=== PATIENT | male | born 1980 | race Caucasian/White ===

== ENCOUNTER 2020-02-27 16:35 | Outpatient (REF) | payer SELFPAY | END 2020-02-27 16:36 | disposition home or self-care (01) | LOC: HO.LAB 16:35 | PROVIDERS: Visit Provider Internal Medicine | DX: Z20.828 Contact with and (suspected) exposure to other viral communicable diseases (principal) | CPT/HCPCS: C9803; U0003 ==

== ENCOUNTER 2020-03-02 16:13 | Outpatient (REF) | payer SELFPAY | END 2020-03-02 16:14 | disposition home or self-care (01) | LOC: HO.LAB 16:13 | PROVIDERS: Visit Provider Internal Medicine | DX: Z20.828 Contact with and (suspected) exposure to other viral communicable diseases (principal) | CPT/HCPCS: C9803; U0003 ==

== ENCOUNTER 2020-08-20 16:11 | Emergency (ER) | payer MEDICAID, SELFPAY ==
[2020-08-20 16:18] VITALS: BP 137/70; PULSE 66; TEMP 35.8; BMI 26.6
--- NOTE | 2020-08-20 16:44 | ED_ITS ---
HPI - Wound/Laceration General Chief Complaint: Wound/Laceration <TC Kauffman - Last Filed: 09/03/20 16:09> Stated Complaint: lac <TC Kauffman - Last Filed: 09/03/20 16:09> Time Seen by Provider: 08/20/20 16:44 <TC Kauffman - Last Filed: 09/03/20 16:09> History of Present Illness HPI narrative: Patient complains of right hand laceration which he got 48 hours ago and thought it would heal quickly but it still is bleeding a little bit so he comes to the ER, no pain no fever no swelling no numbness or tingling <TC Kauffman - Last Filed: 09/03/20 16:09> Related Data Allergies/Adverse Reactions: Allergies Allergy/AdvReac Type Severity Reaction Status Date / Time morphine [MORPHINE] Allergy Severe HIVES Verified 08/20/20 17:03 <TC Kauffman - Last Filed: 09/03/20 16:09> Review of Systems Review of Systems: Positive for right hand laceration Negatives are no numbness no weakness no tingling no joint pain no fever no chills no discharge from <TC Kauffman - Last Filed: 09/03/20 16:09> Yes all other systems are reviewed and are negative <TC Kauffman - Last Filed: 09/03/20 16:09> [facility] Past Medical History Source: nursing notes reviewed <TC Kauffman - Last Filed: 09/03/20 16:09> Physical Exam Vital Signs: Vital Signs: Last Vital Signs Temp 96.5 F L 08/20/20 16:18 Pulse 66 08/20/20 16:18 BP 137/70 08/20/20 16:18 Body Mass Index 26.6 <TC Kauffman - Last Filed: 09/03/20 16:09> Vital Signs: Last Vital Signs Temp 96.5 F L 08/20/20 16:18 Pulse 66 08/20/20 16:18 BP 137/70 08/20/20 16:18 Body Mass Index 26.6 <Benson Willard MD - Last Filed: 10/06/20 09:37> General appearance no acute distress Head is normocephalic atraumatic Neck is supple The right hand had a 1.5 cm open laceration with granulation tissue, no surrounding erythema no discharge from wound no tenderness no fluctuance, all tendon function both on extension and flexion is normal and neurovascular intact distal Other extremities normal <TC Kauffman Last Filed: 09/03/20 16:09> Course Course Course Narrative: 2-day-old laceration is cleansed and irrigated and loosely taped together with Steri-Strips, no suturing as it is already 48 hours old and no signs of infection <TC Kauffman - Last Filed: 09/03/20 16:09> I have reviewed the chart <Benson Willard MD - Last Filed: 10/06/20 09:37> Discharge Plan Discharge Clinical Impression: Laceration <TC Kauffman Last Filed: 09/03/20 16:09> Patient Disposition: Home, Self-Care <TC Kauffman Last Filed: 09/03/20 16:09> Additional Instructions: Because the wound is 48 hours old there is a risk of infection if we put stitches so we taped it loosely together You can remove the tape in 5 or 6 days If it comes off when you wash there is no need to replace the tape It is okay to get the tape wet but then let it dry out and then cover with a dry Band-Aid after you shower wash Cuts that heal on their own will probably take another week or so to close up so wear a Band-Aid and a glove if your working with tools Get a tetanus shot Return any time for redness swelling pain fever any sign of infection any concerns <TC Kauffman - Last Filed: 09/03/20 16:09> Interventions: ED Discharge Assessment Last Done: 08/20/20 17:34 <TC Kauffman Last Filed: 09/03/20 16:09> Discharge Date/Time: 08/20/20 17:36 <TC Kauffman - Last Filed: 09/03/20 16:09>
[2020-08-20] MEDS: Diphth,Pertus(ACell),Tet Adult 0.5 ML SYRINGE IM (17:16)
--- NOTE | 2020-08-20 17:16 | PC.NURSE ---
EDERI STRIPPED PATIENTS 2 DAY OLD LACERATION. APPLIED NON STICK GAUZE AND KERLEX. PATIENT EDUCATED ON DRESSING CHANGES.
== END 2020-08-20 17:36 | disposition home or self-care (01) ==
PROVIDERS: Emergency Provider Emergency Medicine
DX: S61.411A Laceration without foreign body of right hand, initial encounter (principal); M79.641 Pain in right hand; X58.XXXA Exposure to other specified factors, initial encounter; Y93.9 Activity, unspecified; Y92.9 Unspecified place or not applicable; Y99.9 Unspecified external cause status
CPT/HCPCS: 90471; 90715; 99284

== ENCOUNTER 2022-07-01 10:37 | Emergency (ER) | payer OTHER, MEDICAID, SELFPAY ==
[2022-07-01 10:55] VITALS: BP 118/79; PULSE 68; RESP 14; TEMP 36.7; O2SAT 100; BMI 25.8
--- NOTE | 2022-07-01 11:11 | ED_ITS ---
HPI - Extremity Problem General Chief complaint: Extremity Injury, Upper Stated complaint: L Hand Finger Injury 06/30/22 Work Related Time Seen by Provider: 07/01/22 10:51 Source: patient Mode of arrival: ambulatory Limitations: no limitations History of Present Illness HPI Narrative: 41yo male presenting following a left hand injury at work yesterday. Patient stated he slammed a gate on his hand and went to [facility] for evaluation where he had x-rays and was diagnosed with a fracture in his left index finger. Patient stated that he was referred to ortho in [place] but wanted to be seen in [place] so he is presenting today for a new referral. MD Complaint: joint pain (left 2nd and 3rd MCP joints) Onset (ago): day(s) (1) Pain Consistency: constant Location: left and other (index and middle fingers) Severity scale (1-10): 6 Quality: aching Radiation: none Relieving factors: medication Exacerbating factors: range of motion and palpation Associated symptoms: denies other symptoms Related Data Previous Rx's Medication Instructions Recorded ibuprofen 600 mg tablet 600 mg PO Q8H PRN pain #20 tabs 07/01/22 Allergies Allergy/AdvReac Type Severity Reaction Status Date / Time morphine [MORPHINE] Allergy Severe HIVES Verified 08/20/20 17:03 Review of Systems Review of Systems: Yes all other systems are reviewed and are negative [facility] Social History Social History Advance Directives: No Physical Exam Vital Signs: Vital Signs: Last Vital Signs Temp 98.1 F 07/01/22 10:55 Pulse 68 07/01/22 10:55 Resp 14 07/01/22 10:55 BP 118/79 07/01/22 10:55 Pulse Ox 100 07/01/22 10:55 O2 Del Method Room Air 07/01/22 10:55 BMI result Body Mass Index 25.8 Appearance: Alert. Oriented X3. No acute distress. HEENT: normal inspection CVS: Normal heart rate and rhythm. Pulses normal. Respiratory: No respiratory distress. Skin: Skin warm and dry. Normal skin color. Normal skin turgor. No rashes. Extremities: left index finger splinted and swathi taped to middle finger on presentation. swelling of left index and middle fingers with minor abrasions distal to the MCP joint and tenderness over the left index MCP joint. Neuro: Oriented X 3. No motor deficit. No sensory deficit. Medications Administered Discontinued Medications Generic Name Dose Route Start Last Admin Trade Name Julianna PRN Reason Stop Dose Admin Ibuprofen 600 mg 07/01/22 12:18 07/01/22 12:25 Ibuprofen 600 Mg Tablet PO 07/01/22 12:19 600 mg ONCE ONE Administration Medical Decision Making Medical Decision Making MDM Narrative: 41yo male presenting for referral to ortho after being diagnosed with a left index finger fracture yesterday at [facility]. Patient's physical exam showed swelling of the left index and middle fingers with minor abrasions distal to the MCP joint and tenderness over the left index MCP joint. Patient's x-ray from [facility] yesterday showed complex fracture of the 2nd proximal phalanx, transverse distal diaphyseal component with pronounced dorsal angulation of the distal fragment, and longitudinal component extending to the articular surface at the MCP joint. Patient was given 600mg ibuprofen for pain. [He/She] was instructed to continue the medications he was prescribed at [facility] as directed. He was instructed to follow up with ortho and his primary care doctor and to call 911 or return if he develops new or worsening symptoms. Differential Diagnosis Differential Diagnoses: The differential diagnosis associated with the presentation includes finger fracture, finger sprain, finger abrasion Radiology Impression Discussion of test interpretation with radiology: I have reviewed the radiologist's reading. (from [facility] yesterday) Radiologist Impression: Complex fracture of the 2nd proximal phalanx. Transverse distal diaphyseal component with pronounced dorsal angulation of the distal fragment. Longitudinal component extending to the articular surface at the MCP joint. Soft tissue swelling of the 2nd digit. External Record Review External record reviewed: Outside ED record (from [facility] ED from yesterday) Tests considered The following testing was considered but not selected: X-ray not needed because records were obtained from [facility] Prescription Management I considered prescription management with: Pain Medication (ibuprofen) Critical Care Time Critical Care Time Critical Care Time: No Discharge Plan Discharge Clinical Impression: Broken finger Patient Disposition: Home, Self-Care Instructions: Finger Fracture (ED) Additional Instructions: Keep your finger in the applied splint until seen by Orthopedics. At ice and elevate your finger to help with pain and swelling. Take the prescribed anti-inflammatory pain medication as needed. Follow-up with orthopedics. If you develop new or worsening symptoms call 911 or come back to the ER for further evaluation. Prescriptions: New ibuprofen 600 mg tablet 600 mg PO Q8H PRN (Reason: pain) Qty: 20 0RF Referrals: [facility] [Provider Group] (X-ray 06/30 complex fracture of the 2nd proximal phalanx. Transverse distal diaphyseal component with pronounced dorsal angulation of the distal fragment. A longitudinal component extending through the articular surface at the MCP joint. ) Interventions: ED Discharge Assessment Last Done: 07/01/22 12:46 Discharge Date/Time: 07/01/22 12:46
[2022-07-01] MEDS: Ibuprofen 600 MG TABLET PO (12:25)
--- NOTE | 2022-07-01 12:41 | PC.NURSE ---
pt medicated per PAULA IBU 600mg 09/22 left index finger, finger splint reapplied, well tolerated by pt
== END 2022-07-01 12:46 | disposition home or self-care (01) ==
PROVIDERS: Emergency Provider Emergency Medicine
DX: S62.611D Displaced fracture of proximal phalanx of left index finger, subsequent encounter for fracture with routine healing (principal); W23.1XXD Caught, crushed, jammed, or pinched between stationary objects, subsequent encounter; Y93.89 Activity, other specified; Y92.9 Unspecified place or not applicable; Y99.0 Civilian activity done for income or pay
CPT/HCPCS: 99283

== ENCOUNTER 2022-07-07 13:35 | Outpatient (REF) | payer OTHER, MEDICAID, SELFPAY ==
--- NOTE | ~2022-07-07 | XR_ITS ---
EXAMINATION: XR HAND, LEFT CLINICAL INFORMATION: Pain. COMPARISON: Radiographs dated 07/25/2011. TECHNIQUE: PA, lateral, and oblique views of the left hand. FINDINGS: Bony mineralization is normal. A comminuted, angulated stellate fracture is noted of the distal shaft of the left second proximal phalanx. The fracture line extends to the lateral articular surface of the base of the second phalanx. There is a 59 degrees of apex volar angulation. No dislocation is seen. There is generalized soft tissue swelling. No soft tissue gas or foreign body is seen. XR/XR hand LT min 3V IMPRESSION: A comminuted, angulated, stellate fracture is noted of the distal left second proximal phalangeal shaft. The fracture line appears to extend proximally to the base of the second proximal phalanx. There is adjacent soft tissue swelling.
== END 2022-07-07 13:36 | disposition home or self-care (01) ==
LOC: HO.HOSX 13:35
PROVIDERS: Visit Provider Orthopaedic Surgery
DX: M79.642 Pain in left hand (principal)
CPT/HCPCS: 73130

== ENCOUNTER 2022-07-08 | Outpatient (REF) | payer OTHER, SELFPAY ==
--- NOTE | ~2022-07-08 | XR_ITS ---
EXAMINATION: XR HAND, LEFT CLINICAL INFORMATION: Follow-up second proximal phalanx comminuted fracture. COMPARISON: None available. TECHNIQUE: PA, lateral, and oblique views of the left hand. FINDINGS: Bony mineralization is normal. There is stable alignment of a comminuted fracture of the second proximal phalanx following K wire removals. There is near-anatomic alignment, with diminished fracture lines noted, suggesting interval callus formation. No dislocation is seen. There is mild soft tissue swelling of the proximal left second finger. No soft tissue gas or foreign body is seen. XR/XR hand LT min 3V IMPRESSION: There is stable near-anatomic alignment of a comminuted fracture of the second proximal phalanx status-post removal of K wires. There are diminished fracture lines, suggesting mild interval callus deposition.
== END 2022-07-08 00:01 | disposition home or self-care (01) ==
LOC: HO.HOSX
PROVIDERS: Visit Provider Orthopaedic Surgery
DX: M79.642 Pain in left hand (principal)
CPT/HCPCS: 73130

== ENCOUNTER → 2022-07-08 11:07 | Outpatient (BNVA) | payer OTHER, MEDICAID, SELFPAY | PROVIDERS: Visit Provider Orthopaedic Surgery | DX: S62.611B Displaced fracture of proximal phalanx of left index finger, initial encounter for open fracture (principal) | CPT/HCPCS: 73130; 99202 ==

== ENCOUNTER 2022-07-10 08:54 | Day surgery (SDC) | payer OTHER, SELFPAY ==
--- NOTE | ~2022-07-10 | FL_ITS ---
EXAMINATION: XR FLUOROSCOPY WITH IMAGES CLINICAL INFORMATION: Fracture COMPARISON: Previous x-ray 07/08/2022 TECHNIQUE: Fluoroscopy Supervised By: Dr. Vickie Holt. Fluoroscopy Time: 51 seconds. Cumulative Dose: 1.4 mGy. DAP: 0.08 Gycm2. Images: 8. FINDINGS: Images demonstrate 3 K wires are patent or pins transfixing the comminuted fracture of the proximal phalanx of the left second finger. There is improved alignment. FL/FL guidance in OR IMPRESSION: Fluoroscopic guidance for ORIF of proximal phalanx fracture of the left second finger.
[2022-07-10 09:03] VITALS: BMI 25.0
[2022-07-10 09:10] VITALS: BP 115/72; PULSE 57; RESP 15; TEMP 36.6; O2SAT 99
[2022-07-10] MEDS: Lactated Ringers 1,000 ML 50 ML IVCONT (09:27)
--- NOTE | 2022-07-10 09:53 | MHC.SHP ---
Pre-Procedural Eval Section A Date of Service: 07/10/22 The patient is an INPATIENT: No Changes since office visit: No Cold of Flu in the past 2 weeks, No New Medical Problems, No Changes in Medication and No Patient answered all questions The History & Physical has been completed within 30 days and I have reviewed it.: Yes Section B Chief Complaint: Displaced fracture of proximal phalanx of left Allergies: Allergies Allergy/AdvReac Type Severity Reaction Status Date / Time morphine [MORPHINE] Allergy Severe HIVES Verified 07/08/22 11:19 Plan I have reviewed the history and physical and performed a pertinent physical examination on my patient. No changes have occurred unless specified. Time Spent With Patient Time: Total time managing care of this patient today ____ minutes.
--- NOTE | 2022-07-10 09:54 | W.PM.OPN ---
Operative Note Operative Note Date of Service: 07/10/22 Narrative: Operative Note Narrative: Preop diagnosis: 1. Left open index finger proximal phalanx fracture with comminution Postop diagnosis: Same Procedure: 1. Left index finger proximal phalanx fracture open reduction internal fixation 2. I and D of open left index finger proximal phalanx fracture Surgeon: Vickie Holt MD Anesthesia: General Anesthesia Findings: Comminuted proximal phalanx fracture. Significant hematoma extending between extensor tendon and lateral band dorsally, to dorsal skin wound. Volarly there was a 2 mm skin wound. Deep to the incision I did not see significant hematoma in this area so I think it is less likely that the bone protruded through the skin volarly than dorsally. No purulence ir evidence of gross infection. Implants: 0.045 K-wires times 1, 0.035 K-wires x2 Tourniquet time: 55 min EBL: Minimal Specimen: None Drains: None Complications: None Disposition: Brought to the recovery room in stable condition Plan: Follow-up in 5-7 days for a wound check and for placement back in a volar splint. Follow-up a week later for suture removal, pre clinic radiographs and for placement in a short-arm finger spica cast. Anticipate K-wire removal in 4-5 weeks based on interval bony healing Educate the patient that full fracture healing anticipated in approximately 8-12 weeks. Indications: The patient is 42 years old with an open left index finger proximal phalanx fracture with comminution . The risks and benefits of operative treatment, including but not limited to risk of damage to blood vessels, nerves, tendons, infection, recurrence, delayed or nonunion of fracture, persistent pain or numbness, incomplete resolution of preoperative symptoms, or need for further surgery were discussed with the patient and they wished to proceed with surgery. Procedure: Once consent was obtained patient was brought back to the operating suite and placed in the operating table in a supine position. A regional block was performed by the anesthesia team. Perioperative antibiotics and general anesthesia was administered by the anesthesia team. A tourniquet was applied to the proximal aspect of the left upper extremity and the limb was prepped and draped in a standard surgical fashion. The limb was elevated exsanguinated with an Esmarch bandage and the tourniquet inflated for a total tourniquet time of 55 min. The FluoroScan was used during the case to assist with our fracture reduction and placement of all implants. A closed reduction was performed on the patient's left index finger proximal phalanx fracture. I then made a dorsal longitudinal incision through the skin to the subcutaneous tissues using a 15. Blade. I dissected down to the extensor mechanism. Between the extensor tendon and the ulnar lateral band I could see that hematoma from the fracture passed through this area to the overlying skin wound, likely creating the open fracture. The fracture was debrided of hematoma using a rongeur and a small curette and the fracture site was copiously irrigated with normal saline. I also made a 1.5 cm incision over the volar aspect of the proximal phalanx centered over a 2 mm wound that looked like it could have been where a spike of bone protruded through the skin. I then dissected through the skin to the subcutaneous tissues. I did not see any hematoma in this area, and I think it is less likely that the bone protruded through the skin in this area. This also was copiously irrigated with normal saline. An open reduction was then performed on this fracture bringing it from her 90 degrees of apex volar angulation into its roughly anatomic position. I then passed a 0.045 K-wire through the radial base of the index finger proximal phalanx. This was advanced distally across the fracture sites and into the distal ulnar fragment. I then passed a 0.035 K-wire through the distal radial aspect of the proximal phalanx. This was then advanced retrograde across the transverse fracture site and into the ulnar shaft of the proximal phalanx. I then passed a 2nd 0.035 K-wire through the ulnar distal aspect of the proximal phalanx. This was advanced retrograde across the fracture site and down the shaft of the proximal phalanx to the base of the proximal phalanx. I was satisfied with our fracture reduction and with our construct. He did not appear to have any malrotation on clinical exam. At this point all K-wires bent, cut short and pin caps applied. Final radiographs were then obtained. The open fracture was again copiously irrigated with normal saline, also using an Angiocath and a syringe to appropriately irrigate the fracture. The wounds were copiously irrigated with normal saline. A digital block was also performed using some 0.5% plain ropivacaine for postop pain control. A Sterile dressing and volar splint extending from the fingertips to the forearm was applied. The patient appears to have tolerated the procedure well and with no complications. All digits were well vascularized at the conclusion of the case.
--- NOTE | 2022-07-10 11:56 | P.CONAN_ITS ---
[facility] Active Problems Active Problems: All Active Problems (Updated 07/10/22 @ 09:03 by Barbie Decker RN) Open fracture of proximal phalanx of left index finger (Acute) Past Medical History Medical History (Updated 07/10/22 @ 09:03 by Barbie Decker RN) No pertinent past medical history Family History Family history of problems with anesthesia: No Surgical History Surgical History (Updated 07/10/22 @ 09:02 by Barbie Decker RN) Hx of tonsillectomy History of Problems with Anesthesia: No Social History Social History (Updated 07/08/22 @ 11:33 by TEVIN Adams) Patient Tobacco Use Status: Current everyday Tobacco user Tobacco use type: Cigarette Cigarettes Per Day: 5 Use of substances other than those prescribed or required for medical reasons: Yes Substance Use Frequency: Daily Are you DNR?: No Advance Directives: No Advance Directives Information Provided: Yes 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 Meds Allergies Allergy/AdvReac Type Severity Reaction Status Date / Time morphine [MORPHINE] Allergy Severe HIVES Verified 07/08/22 11:19 Active Medications: Current Medications Lactated Ringer's (Lr) 1,000 mls @ 50 mls/hr IVCONT .Q20H KEREN Last Admin: 07/10/22 09:27 Dose: 50 mls/hr Exam Exam Date and Time: July 10, 2022 1156 Height,Weight and Vital Signs: Height 5 ft 6 in Weight 70.307 kg Last Vital Signs Temp 97.9 F 07/10/22 09:10 Pulse 57 07/10/22 09:10 Resp 15 07/10/22 09:10 BP 115/72 07/10/22 09:10 Pulse Ox 99 07/10/22 09:10 O2 Del Method Room Air 07/10/22 09:10 Airway Mallampati Class: II TM Dist: >3cm Heart: cta Lungs: rrr Assessment and Plan Assessment Anesthesia Assessment: Anesthesia Plan Discussed and Chart Reviewed Final Anesthetic Review Family History of Problems with Anesthesia: No History of Problems with Anesthesia: No NPO: Yes ASA Class: III (pt intoxicated with marihuana per his report.) Final Preanesthetic Review: No Changes in Pt Med Stat, Meds/Allgs Chart Reviewed, Consent Obtained/Reviewed and Anes Risks/Benef Reviewed Patient Risk: Intermediate Procedure Risk: Low Anesthetic Plan Anesthetic Plan: GA and Regional Block Disposition: Standard PACU
[2022-07-10 15:00] VITALS: BP 139/79; PULSE 50; RESP 12; TEMP 36.7; O2SAT 100
[2022-07-10 15:05] VITALS: BP 131/75; PULSE 52; RESP 16; O2SAT 97
[2022-07-10 15:10] VITALS: BP 124/72; PULSE 58; RESP 16; O2SAT 96
[2022-07-10 15:15] VITALS: BP 120/72; PULSE 53; RESP 16; O2SAT 96
[2022-07-10 15:26] VITALS: BP 129/72; PULSE 46; RESP 18; TEMP 36.2; O2SAT 97
== END 2022-07-10 15:44 | disposition home or self-care (01) ==
PROVIDERS: Visit Provider Orthopaedic Surgery
PROC: (CPT 26735; principal; 2022-07-10 10:40)
PROC: (CPT 26735; 2022-07-10 10:40)
DX: S62.611B Displaced fracture of proximal phalanx of left index finger, initial encounter for open fracture (principal); R20.0 Anesthesia of skin; R20.2 Paresthesia of skin; W22.8XXA Striking against or struck by other objects, initial encounter; Y93.89 Activity, other specified; Y92.89 Other specified places as the place of occurrence of the external cause; Y99.0 Civilian activity done for income or pay; Z88.8 Allergy status to other drugs, medicaments and biological substances; F17.210 Nicotine dependence, cigarettes, uncomplicated
CPT/HCPCS: 26735; 10140; J0690; J1100; J2370; J2405; J2795

== ENCOUNTER → 2022-07-16 14:02 | Outpatient (BNVA) | payer OTHER, SELFPAY | PROVIDERS: Visit Provider Physician Assistant | DX: Z13.89 Encounter for screening for other disorder (principal) ==

== ENCOUNTER 2022-07-23 13:40 | Outpatient (REF) | payer OTHER, SELFPAY ==
--- NOTE | ~2022-07-23 | XR_ITS ---
EXAMINATION: XR HAND, LEFT CLINICAL INFORMATION: Pain. COMPARISON: Intraoperative fluoroscopy dated 07/10/2022; radiographs dated 07/08/2022 TECHNIQUE: PA, lateral, and oblique views of the left hand. FINDINGS: 3 K wires are noted transfixing a comminuted fracture of the shaft of the left second middle phalanx. Bony alignment remains stable, with mild distraction of fracture fragments. No hardware failure is seen. There is generalized soft tissue swelling. No foreign body is noted. XR/XR hand LT min 3V IMPRESSION: There is stable bony alignment status-post ORIF of a comminuted fracture of the left second middle phalanx. No hardware failure or loosening is seen. There is no significant new callus formation.
--- NOTE | ~2022-07-23 | XR_ITS ---
EXAMINATION: XR HAND, LEFT CLINICAL INFORMATION: Pain. COMPARISON: Radiographs dated 07/23/2022 and 07/08/2022; intraoperative fluoroscopy dated 07/10/2022. TECHNIQUE: PA, lateral, and oblique views of the left hand. FINDINGS: 3 K wires are again identified transfixing a comminuted fracture fragments of the proximal phalanx of the left third finger. Again, there is mild distraction of fracture fragments. No hardware failure or loosening is seen. The K wires remain in relatively stable positions. There is soft tissue swelling of the proximal left index finger, soft tissue gas or foreign body noted. XR/XR hand LT min 3V IMPRESSION: There is a stable alignment of mildly distracted fracture fragment of the left second proximal phalanx status-post ORIF. No hardware failure or loosening is seen.
== END 2022-07-23 13:41 | disposition home or self-care (01) ==
LOC: HO.HOSX 13:40
PROVIDERS: Visit Provider Orthopaedic Surgery
DX: S62.611D Displaced fracture of proximal phalanx of left index finger, subsequent encounter for fracture with routine healing (principal); X58.XXXD Exposure to other specified factors, subsequent encounter
CPT/HCPCS: 73130

== ENCOUNTER → 2022-07-28 13:10 | Outpatient (BNVA) | payer OTHER, SELFPAY | PROVIDERS: Visit Provider Physician Assistant | DX: S62.611B Displaced fracture of proximal phalanx of left index finger, initial encounter for open fracture (principal); X58.XXXA Exposure to other specified factors, initial encounter; Y93.9 Activity, unspecified; Y92.9 Unspecified place or not applicable; Y99.8 Other external cause status | CPT/HCPCS: 29085 ==

== ENCOUNTER 2022-08-06 09:18 | Outpatient (REF) | payer OTHER, SELFPAY ==
--- NOTE | ~2022-08-06 | XR_ITS ---
EXAMINATION: XR HAND, LEFT CLINICAL INFORMATION: Pain. Fracture. COMPARISON: Previous x-ray most recent 07/23/2022 TECHNIQUE: PA, lateral, and oblique views of the left hand. FINDINGS: Comminuted minimally displaced fracture of the proximal phalanx of the second finger and orthopedic hardware with K wires or pins appear unchanged. Fracture line still seen. No appreciable bony callus formation. Unchanged in alignment. Overlying soft tissue swelling. XR/XR hand LT min 3V IMPRESSION: No change in alignment of the comminuted minimally displaced fracture of the proximal phalanx of the second finger. No appreciable bony callus formation.
== END 2022-08-06 09:19 | disposition home or self-care (01) ==
LOC: HO.HOSX 09:18
PROVIDERS: Visit Provider Orthopaedic Surgery
DX: S62.611B Displaced fracture of proximal phalanx of left index finger, initial encounter for open fracture (principal)
CPT/HCPCS: 73130

== ENCOUNTER 2022-08-19 07:37 | Outpatient (REF) | payer OTHER, SELFPAY ==
--- NOTE | ~2022-08-19 | XR_ITS ---
EXAMINATION: XR HAND, LEFT CLINICAL INFORMATION: Pain COMPARISON: None available. TECHNIQUE: PA, lateral, and oblique views of the left hand. FINDINGS: Again seen are 3 percutaneous fixation pins fixating an obliquely oriented fracture of the second proximal phalanx in unchanged alignment. No definite bridging bony callus formation. Joint spaces are maintained. Osteopenia. Soft tissues are unremarkable. XR/XR hand LT min 3V IMPRESSION: Again seen are 3 percutaneous fixation pins fixating an obliquely oriented fracture of the second proximal phalanx in unchanged alignment. No definite bridging bony callus formation.
== END 2022-08-19 07:38 | disposition home or self-care (01) ==
LOC: HO.HOSX 07:37
PROVIDERS: Visit Provider Orthopaedic Surgery
DX: S62.611D Displaced fracture of proximal phalanx of left index finger, subsequent encounter for fracture with routine healing (principal); X58.XXXD Exposure to other specified factors, subsequent encounter; Z96.89 Presence of other specified functional implants
CPT/HCPCS: 73130

== ENCOUNTER 2022-09-09 07:31 | Outpatient (REF) | payer OTHER, SELFPAY ==
--- NOTE | ~2022-09-09 | XR_ITS ---
EXAMINATION: XR HAND, LEFT CLINICAL INFORMATION: Left hand pain, attention index finger COMPARISON: 08/19/2022 TECHNIQUE: PA, lateral, and oblique views of the left hand. Images presented 09/24/2022 at 10:48 AM for interpretation. FINDINGS: Interval removal of percutaneous fixation pain traversing second proximal phalanx. Redemonstration of comminuted, mildly displaced fracture of the proximal phalanx of the second finger. Fracture lines appear less distinct, suggesting some callus formation. XR/XR hand LT min 3V IMPRESSION: Redemonstration of comminuted, mildly displaced fracture of the proximal phalanx of the second finger. Fracture lines appear less distinct, suggesting some callus formation.
== END 2022-09-09 07:32 | disposition home or self-care (01) ==
LOC: HO.HOSX 07:31
PROVIDERS: Visit Provider Orthopaedic Surgery
DX: S62.611D Displaced fracture of proximal phalanx of left index finger, subsequent encounter for fracture with routine healing (principal); X58.XXXD Exposure to other specified factors, subsequent encounter
CPT/HCPCS: 73130

== ENCOUNTER 2022-10-07 07:54 | Emergency (ER) | payer MEDICAID, SELFPAY ==
[2022-10-07 08:01] VITALS: BP 122/73; PULSE 72; RESP 18; TEMP 36.8; O2SAT 99; BMI 25.9
[2022-10-07 08:09] VITALS: BP 102/69; PULSE 70; RESP 18; TEMP 36.6; O2SAT 99
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
== END 2022-10-07 09:37 | disposition home or self-care (01) ==
PROVIDERS: Emergency Provider Emergency Medicine
DX: S49.91XA Unspecified injury of right shoulder and upper arm, initial encounter (principal); S40.811A Abrasion of right upper arm, initial encounter; V29.99XA Rider (driver) (passenger) of other motorcycle injured in unspecified traffic accident, initial encounter; M54.2 Cervicalgia; Y93.89 Activity, other specified; Y92.410 Unspecified street and highway as the place of occurrence of the external cause; Y99.9 Unspecified external cause status
CPT/HCPCS: 99283; 99284

== ENCOUNTER 2022-10-13 08:46 | Outpatient (REF) | payer MEDICAID, SELFPAY ==
--- NOTE | ~2022-10-13 | XR_ITS ---
EXAMINATION: XR CLAVICLE, RIGHT CLINICAL INFORMATION: Fracture COMPARISON: None available. TECHNIQUE: Two views of the right clavicle. FINDINGS: Prominently displaced oblique fracture of the mid right clavicle with cranial displacement of the medial fracture fragment approximately 3.2 cm. Suggestion of overlying soft tissue changes. Joint spaces and alignment are otherwise maintained. XR/XR clavicle RT IMPRESSION: 1. Prominently displaced oblique fracture of the mid right clavicle with cranial displacement of the medial fracture fragment approximately 3.2 cm. 2. Suggestion of overlying soft tissue changes.
== END 2022-10-13 08:47 | disposition home or self-care (01) ==
LOC: HO.HOSX 08:46
PROVIDERS: Visit Provider Physician Assistant
DX: S42.001A Fracture of unspecified part of right clavicle, initial encounter for closed fracture (principal)
CPT/HCPCS: 73000; 99212

== ENCOUNTER 2022-10-13 09:38 | Outpatient (AMB) | payer MEDICAID, SELFPAY ==
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
== END 2022-10-13 11:15 | disposition home or self-care (01) ==
PROVIDERS: Visit Provider Physician Assistant
DX: S42.001A Fracture of unspecified part of right clavicle, initial encounter for closed fracture (principal)
CPT/HCPCS: 99214

== ENCOUNTER 2022-10-14 11:37 | Day surgery (SDC) | payer MEDICAID, SELFPAY ==
--- NOTE | ~2022-10-14 | FL_ITS ---
EXAMINATION: XR FLUOROSCOPY WITH IMAGES CLINICAL INFORMATION: Right clavicle fracture. COMPARISON: None available. TECHNIQUE: Fluoroscopy Supervised By: Dr. Faraz Howard. Fluoroscopy Time: 0.2 minutes. Cumulative Dose: 5.09 mGy. DAP: 0.0885 Gycm2. Images: 3. FINDINGS: 3 images demonstrate sideplate and screw fixation of mid right clavicle fracture. FL/FL guidance in OR IMPRESSION: Intraoperative fluoroscopy for orthopedic procedure.
[2022-10-14 12:42] VITALS: BMI 25.8
[2022-10-14 12:50] VITALS: BP 118/70; PULSE 47; RESP 18; TEMP 36.6; O2SAT 100
--- NOTE | 2022-10-14 12:56 | P.CONAN_ITS ---
HPI - Anesthesia Eval Consult details Narrative: for ORIF CLAVICULAR FRACTURE PMFSH Active Problems Active Problems: All Active Problems (Updated 10/13/22 @ 10:33 by Robin Bundy PA-C) Right clavicle fracture (Acute) Open fracture of proximal phalanx of left index finger (Acute) Past Medical History Medical History No pertinent past medical history Right clavicle fracture Family History Family history of problems with anesthesia: No Surgical History Surgical History Hx of tonsillectomy History of Problems with Anesthesia: No Social History Social History Alcohol intake: current Alcohol intake frequency: holidays/special occasions only Patient Tobacco Use Status: Current everyday Tobacco user Tobacco use type: Cigarette Cigarettes Per Day: 5 Smoked in Last 30 Days: Yes Patient Interested in Nicotine Replacement: No Substance Use Type: Marijuana Substance Use Frequency: Occasionally Are you DNR?: No Advance Directives: No Advance Directives Information Provided: Yes Nutrition Risks: No Nutritional Risk 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 Meds Allergies Allergy/AdvReac Type Severity Reaction Status Date / Time morphine [MORPHINE] Allergy Severe HIVES Verified 10/13/22 10:02 Active Medications: Current Medications Lactated Ringer's (Lr) 1,000 mls @ 50 mls/hr IVCONT .Q20H KEREN Exam Exam Date and Time: October 14, 2022 1256 Height,Weight and Vital Signs: Height 5 ft 6 in Weight 72.575 kg Last Vital Signs Temp 97.9 F 10/14/22 12:50 Pulse 47 L 10/14/22 12:50 Resp 18 10/14/22 12:50 BP 118/70 10/14/22 12:50 Pulse Ox 100 10/14/22 12:50 O2 Del Method Room Air 10/14/22 12:50 Airway Mallampati Class: II TM Dist: >3cm Heart: RRR Lungs: CTA Assessment and Plan Assessment Anesthesia Assessment: Anesthesia Plan Discussed Final Anesthetic Review Family History of Problems with Anesthesia: No History of Problems with Anesthesia: No NPO: Yes ASA Class: II Final Preanesthetic Review: No Changes in Pt Med Stat, Meds/Allgs Chart Reviewed, Consent Obtained/Reviewed and Anes Risks/Benef Reviewed Patient Risk: Low Procedure Risk: Low Anesthetic Plan Anesthetic Plan: GA and Regional Block Disposition: Standard PACU
[2022-10-14] MEDS: Lactated Ringers 1,000 ML 50 ML IVCONT (13:01)
--- NOTE | 2022-10-14 13:07 | PC.NURSE ---
dr. kruegr aware that patient had black coffee/sugar only at 0900.
--- NOTE | 2022-10-14 13:15 | PC.NURSE ---
dr. herrera also aware of patient pulse that is karl ([id number])
--- NOTE | 2022-10-14 14:14 | MHC.SHP ---
Pre-Procedural Eval Section A Date of Service: 10/14/22 The patient is an INPATIENT: No Changes since office visit: No Cold of Flu in the past 2 weeks, No New Medical Problems, No Changes in Medication and No Patient answered all questions The History & Physical has been completed within 30 days and I have reviewed it.: Yes Section B Chief Complaint: Fracture of unspecified part of right clavicle Allergies: Allergies Allergy/AdvReac Type Severity Reaction Status Date / Time morphine [MORPHINE] Allergy Severe HIVES Verified 10/14/22 13:03 Plan I have reviewed the history and physical and performed a pertinent physical examination on my patient. No changes have occurred unless specified. Time Spent With Patient Time: Total time managing care of this patient today ____ minutes.
--- NOTE | 2022-10-14 16:27 | PM.OP ---
Brief Operative Note Date of Service: 10/14/22 Pre-op diagnosis: Right clavicle fracture Post-op diagnosis: same Procedure: ORIF right clavicle fracture Implants: Oliver superior clavicle plate, locking Surgeon: Faraz Howard MD Anesthesia: GETA and regional Was an Career And Transition Teacher used for this Procedure?: Yes Career And Transition Teacher: Robin Bundy Estimated blood loss (mL): 150 IV fluids (mL): 1,000 Pathology: none sent Condition: stable Disposition: PACU
[2022-10-14 16:51] VITALS: BP 128/63; PULSE 61; RESP 18; TEMP 36.5; O2SAT 94
[2022-10-14 16:56] VITALS: BP 120/59; PULSE 55; RESP 18; O2SAT 95
[2022-10-14 17:01] VITALS: BP 118/62; PULSE 57; RESP 18; O2SAT 96
[2022-10-14] MEDS: Acetaminophen 1,000 MG/100 ML PIGGYBACK 400 MG IV (17:03)
[2022-10-14 17:06] VITALS: BP 114/65; PULSE 45; RESP 18; O2SAT 98
[2022-10-14] MEDS: oxyCODONE HCl Immed Release 5 MG TABLET PO (17:09)
[2022-10-14 17:21] VITALS: BP 116/82; PULSE 47; RESP 16; TEMP 36.4; O2SAT 98
--- NOTE | 2022-10-17 16:12 | P.OP_ITS ---
Operative Note Operative Note Date of Service: 10/14/22 Narrative: Date of Service: 10/14/22 Pre-op diagnosis: Right clavicle fracture Post-op diagnosis: same Procedure: ORIF right clavicle fracture Implants: Oliver superior clavicle plate, locking Surgeon: Faraz Howard MD Anesthesia: GETA and regional Was an Middleware Architect used for this Procedure?: Yes Middleware Architect: Robin Bundy Estimated blood loss (mL): 150 IV fluids (mL): 1,000 Pathology: none sent Condition: stable Disposition: PACU Patient was brought to the operating room and placed in the beach chair position on the surgical table. The site was prepped and draped in standard sterile fashion and a time out was called to identify proper site, proper procedure and IV antibiotics per weight were administered. I began by making a superior incision over the clavicle. Once through skin Littler scissors were used to dissect through the clavicular fascia. The medial fracture fragment was identified and a lobster claw tenaculum was used to stabilize it. The lateral fracture fragments were then identified and, using a combination of irrigation and sharp debridement, I cleaned up the fracture fragments. two lag screws were placed using standard AO technique to reduce the two lateral fragements. This was shortened and a 10 hole locking plate was selected. I used an additional lobster claw to provisionally reduce the fracture and the plate was placed superiorly and held in place with olive-tipped K-wires while radiographs were obtained. Visually I was satisfied with the fracture reduction and radiographs demonstrated sufficient length of the plate. I then used standard AO technique to place 4bicortical screws lateral to the fracture and 3 bicortical screws medially so that the plate spanned the comminuted midshaft fracture. Again biplanar fluoroscopy was used to confirm appropriate hardware location, fracture reduction and screw length. Once I was satisfied with these parameters I copiously irrigated and closed with absorbable suture, skin glue and Steri-Strips. Patient was placed in sterile dressing and extubated brought to recovery room stable condition there were no known complications.
== END 2022-10-14 17:48 | disposition home or self-care (01) ==
PROVIDERS: Visit Provider Orthopaedic Surgery
PROC: (CPT 23515; principal; 2022-10-14 14:00)
DX: S42.021A Displaced fracture of shaft of right clavicle, initial encounter for closed fracture (principal); V29.888A Rider (driver) (passenger) of other motorcycle injured in other specified transport accidents, initial encounter; Y93.89 Activity, other specified; Y92.410 Unspecified street and highway as the place of occurrence of the external cause; Y99.8 Other external cause status; Z88.8 Allergy status to other drugs, medicaments and biological substances; F12.90 Cannabis use, unspecified, uncomplicated; F17.210 Nicotine dependence, cigarettes, uncomplicated
CPT/HCPCS: 23515; C1713; J0131; J0461; J0690; J1885; J2405; J2795; J3010

== ENCOUNTER → 2022-10-14 11:37 | Outpatient (BNV) | payer MEDICAID, SELFPAY | PROVIDERS: Visit Provider Orthopaedic Surgery | DX: S42.021A Displaced fracture of shaft of right clavicle, initial encounter for closed fracture (principal) | CPT/HCPCS: 23515 ==

== ENCOUNTER 2022-10-23 13:01 | Outpatient (AMB) | payer OTHER, SELFPAY ==
--- NOTE | 2022-10-23 13:17 | MHC.OFFVIS ---
Intake Intake Visit Reasons: Post Op - Right Clavicle ORIF 10/14/22 - Wound Check Intake Note: Mauricio 42 yr old male presents today for his P.O visit for his right clavicle repair form 10/14/22. States he has mild discomfort. Patient states he cont's to use sling. Allergies morphine [MORPHINE] Allergy (Severe, Verified 10/23/22 13:19) HIVES HPI Post Op - Right Clavicle ORIF 10/14/22 - Wound Check HPI Details 42-year-old male who returns to the office today for post-op right clavicle ORIF, 10/14/22. He continues to have mild discomfort in his right clavicle. He is wearing his sling as instructed. He is doing well otherwise and has no concerns today. 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 Steri strips intact. No drainage. Assessment & Plan Assessment & Plan (1) Right clavicle fracture: Code(s): S42.001A - Fracture of unspecified part of right clavicle, initial encounter for closed fracture Plan He will continue to use sling. He should avoid showering and no lifting or motion above the shoulder height or behind the coronal plane of the body. He will follow-up in 1 week for his routine postop appointment. Patient Instructions: Scribed for Robin Bundy PA-C, by [employer] medical claims examiner, on 10/23/2022 at 1:15 PM EST. I, Robin Bundy PA-C, have personally reviewed and agree with the information entered by the scribe. Coding Level of Care Code Global (82078) Diagnoses Right clavicle fracture S42.001A
== END 2022-10-23 13:23 | disposition home or self-care (01) ==
PROVIDERS: Visit Provider Physician Assistant
DX: S42.001A Fracture of unspecified part of right clavicle, initial encounter for closed fracture (principal)
CPT/HCPCS: 99024

== ENCOUNTER → 2022-10-23 13:01 | Outpatient (BNVA) | payer OTHER, SELFPAY | PROVIDERS: Visit Provider Physician Assistant ==

== ENCOUNTER 2022-10-23 15:30 | Outpatient (RCR) | payer OTHER, MEDICAID, SELFPAY ==
--- NOTE | 2022-09-04 16:41 | MHC.OT.EP ---
[address] [phone] Occupational Therapy Plan of Care Patient Name: Mauricio Lynn Date of Evaluation: 09/04/22 Diagnosis: Displaced fracture of proximal phalanx of left index finger. ORIF, K wire fixation Pain Location: Left index 2-7 Pain Score: 4 Pain Scale Used: Numeric (0 - 10) Aggravating Factors: Inc pain with use and ex . 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 Pt presents with a very stiff index finger and adherent surgical scar limiting use with daily activities Pt previously active with heavy work and sports now out of work and limited daily activities due to impairments with healing fx, pain and joint stiffness Pt will benefit from OT to regain ROM and left hand function with prior activities Frequency and Duration: The patient will be seen 2x wk x 6 wks Short Term Goals: Demo indep with HEP Indep with scar mobilization PIP jt to > 70 deg flexion Use of left hand index finger with light bimanual activities Biomed Tech Goals: Left index finger PIP ext to neutral Left index finger PIP flex to > 90 deg 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 Thank you once again for your referral.
--- NOTE | 2022-11-21 08:36 | MHC.OT.DC ---
[address] [phone] F: [phone] Occupational Therapy Discharge Note Patient Name: Mauricio Lynn Provider: Vickie Holt Diagnosis: Displaced fracture of proximal phalanx of left index finger. ORIF, K wire fixation Date of Surgery: 07/10/22 Date of Evaluation: 09/04/22 Date of Discharge: Treatments to Date: 6 Cancellations to Date: No Shows to Date: Discharge Status: Discharge Summary: 14 wks, 5 days s/p ORIF for index fx. and 6 wks, 5 days OT with a 2 week lapse in OT due to pt work schedule and appointment availability Inc PIPj flexion after treatment not maintained over the past 3 wks. May benefit from the flexion strap. Electronically Signed By: Kassy Álvarez OT CHT CLT Reviewed/agree with student documentation: Therapist: Please Sign and return to therapist, thank you for your referral.
== END 2022-11-21 08:37 | disposition home or self-care (01) ==
LOC: HO.OT 15:30
PROVIDERS: PCP Internal Medicine Geriatric Medicine; Visit Provider Orthopaedic Surgery
DX: S62.611B Displaced fracture of proximal phalanx of left index finger, initial encounter for open fracture (principal)
CPT/HCPCS: 97035; 97110; 97140; 97165

== ENCOUNTER 2022-10-30 06:36 | Outpatient (REF) | payer MEDICAID, SELFPAY ==
--- NOTE | ~2022-10-30 | XR_ITS ---
EXAMINATION: XR CLAVICLE, RIGHT CLINICAL INFORMATION: Follow-up fracture. COMPARISON: Fluoroscopy dated 10/14/2022; radiographs dated 10/13/2022. TECHNIQUE: Straight AP and cephalad angulated AP views of the right clavicle. FINDINGS: An orthopedic plate and screws are applied to the cephalad aspect of the right clavicle. There is a healing oblique fracture of the mid clavicle, with displaced comminution fragment. The acromioclavicular and coracoclavicular intervals are normal. The glenohumeral joint is intact. No soft tissue calcification or foreign body is seen. There is no right pneumothorax. XR/XR clavicle RT IMPRESSION: There is well-maintained alignment status-post ORIF of an oblique fracture of the mid right clavicle. No hardware failure or loosening is seen. There is no significant new callus formation noted.
== END 2022-10-30 06:37 | disposition home or self-care (01) ==
LOC: HO.HOSX 06:36
PROVIDERS: Visit Provider Physician Assistant
DX: S42.001D Fracture of unspecified part of right clavicle, subsequent encounter for fracture with routine healing (principal)
CPT/HCPCS: 73000

== ENCOUNTER 2022-10-30 12:58 | Outpatient (AMB) | payer OTHER, SELFPAY ==
--- NOTE | 2022-10-30 13:09 | A.OFFVIS_ITS ---
Intake Intake Visit Reasons: Post Op - Right Clavicle ORIF 10/14/22 Intake Note: Mauricio 42 yr old male presents today for his P.O visit for his right clavicle repair form 10/14/22. States he has mild discomfort. patient requesting refill for pain medication. Allergies morphine [MORPHINE] Allergy (Severe, Verified 10/30/22 13:11) HIVES HPI Post Op - Right Clavicle ORIF 10/14/22 HPI Details 42-year-old male who returns to the office today for post-op right clavicle ORIF, 10/14/22. He continues to have discomfort in his right clavicle but is doing well otherwise. He is taking oxycodone for his pain and would like have a refill for the medication. He has no concerns today. 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 Steri strips intact. There is no redness or drainage. NVI. Results Reviewed Results Reviewed: Xrays were obtained in the office today and personally reviewed by me of the right clavicle show intact orthopedic hardware with stable fracture placement Assessment & Plan Assessment & Plan (1) Right clavicle fracture: Code(s): S42.001A - Fracture of unspecified part of right clavicle, initial encounter for closed fracture Plan Steri strips remain intact. He will continue to use the sling for comfort. He can take the arm out of the sling to allow for ROM of the elbow and activities and he can perform activities at the level of his lower torso. No overhead reaching or lifting more than a cellphone. He will remain out of work until his next appointment in 3 weeks with new x-rays, sooner if needed. Orders: Orders XR clavicle RT Today S42.009A - Fracture of unspecified part of unspecified clavicle, initial encounter for closed fracture Patient Instructions: Scribed for Robin Bundy PA-C, by [employer] medical equipment repairer, on 10/30/2022 at 1:15 PM EST. I, Robin Bundy PA-C, have personally reviewed and agree with the information entered by the scribe. Coding Level of Care Code Global (75334) Diagnoses Right clavicle fracture S42.001A
== END 2022-10-30 14:01 | disposition home or self-care (01) ==
PROVIDERS: Visit Provider Physician Assistant
DX: S42.001A Fracture of unspecified part of right clavicle, initial encounter for closed fracture (principal)
CPT/HCPCS: 99024

== ENCOUNTER 2022-12-11 12:24 | Outpatient (REF) | payer OTHER, SELFPAY ==
--- NOTE | ~2022-12-11 | XR_ITS ---
EXAMINATION: XR CLAVICLE, RIGHT CLINICAL INFORMATION: Fracture unspecified part of unspecified clavicle, initial encounter COMPARISON: 10/30/2022 TECHNIQUE: PA and tangential views of the right clavicle. FINDINGS: An orthopedic plate and screws are applied to the cephalad aspect of the right clavicle. There is a healing oblique fracture of the mid clavicle with healing displaced comminution fragment. The acromioclavicular and coracoclavicular intervals are normal. The glenohumeral joint is intact. No soft tissue calcification or foreign body is seen. There is no right pneumothorax. XR/XR clavicle RT IMPRESSION: Status post ORIF of an oblique fracture of the mid right clavicle. No change in position or alignment of the fracture fragments. No hardware failure or loosening is seen.
== END 2022-12-11 12:25 | disposition home or self-care (01) ==
LOC: HO.HOSX 12:24
PROVIDERS: Visit Provider Physician Assistant
DX: S42.024D Nondisplaced fracture of shaft of right clavicle, subsequent encounter for fracture with routine healing (principal)
CPT/HCPCS: 73000

== ENCOUNTER 2022-12-11 14:31 | Outpatient (AMB) | payer MEDICAID, SELFPAY ==
--- NOTE | 2022-12-11 14:39 | MHC.OFFVIS ---
Intake Intake Visit Reasons: Post Op - Right Clavicle ORIF 10/14/22 Intake Note: Mauricio a 42 year old male who presents today for a post operative visit of right clavicle ORIF, DOS 10/14/22. Patient reports hearing a crack with arm ROM. He continues to have pain. Allergies morphine [MORPHINE] Allergy (Severe, Verified 12/11/22 14:42) HIVES HPI Post Op - Right Clavicle ORIF 10/14/22 HPI Details 42-year-old male who returns to the office today for post-op right clavicle ORIF, 10/14/22. He continues to have pain in his clavicle and does c/o hearing a crack in his arm with ROM. He is doing well otherwise and has no concerns today. 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 There is no redness or drainage. NVI. Results Reviewed Results Reviewed: X-rays of the right clavicle obtained in the office today show intact orthopedic hardware. On the proximal end of the clavicle the hardware does appear to be lifted off. The bone fracture is in good alignment. Assessment & Plan Assessment & Plan (1) Right clavicle fracture: Code(s): S42.001A - Fracture of unspecified part of right clavicle, initial encounter for closed fracture Qualifiers: Encounter type: subsequent encounter Clavicle location: shaft Fracture type: closed Fracture alignment: nondisplaced Fracture healing: with routine healing Qualified Code(s): S42.024D - Nondisplaced fracture of shaft of right clavicle, subsequent encounter for fracture with routine healing Plan I did stress the importance of refraining from overhead activities including anything with weight. He should focus more on ROM and periscapular stabilization. At this time, he does express understanding and he will continue to take Tylenol and ibuprofen. I did explain to him that we will not be refilling the oxycodone given to him as he is 6 weeks out from surgery. I did encourage PT to work on ROM and periscap stabilization which he derred at this time. He will follow-up with me in 6 weeks with new x-rays, sooner if needed. Orders: Orders XR clavicle RT Today S42.009A - Fracture of unspecified part of unspecified clavicle, initial encounter for closed fracture Patient Instructions: Scribed for Robin Bundy PA-C, by [employer] [employer] medical practice manager, on 12/11/2022 at 2:30 PM EST. Robin Higginbotham PA-C, have personally reviewed and agree with the information entered by the scribe. Coding Level of Care Code Global (89304) Diagnoses Closed nondisplaced fracture of shaft of right clavicle with routine healing, subsequent encounter S42.024D Encounter type: subsequent encounter Clavicle location: shaft Fracture type: closed Fracture alignment: nondisplaced Fracture healing: with routine healing
== END 2022-12-11 15:01 | disposition home or self-care (01) ==
PROVIDERS: Visit Provider Physician Assistant
DX: S42.024D Nondisplaced fracture of shaft of right clavicle, subsequent encounter for fracture with routine healing (principal)
CPT/HCPCS: 99024

== ENCOUNTER 2023-01-22 11:42 | Outpatient (REF) | payer MEDICAID, SELFPAY ==
--- NOTE | ~2023-01-22 | XR_ITS ---
EXAMINATION: XR CLAVICLE, RIGHT CLINICAL INFORMATION: Follow-up right clavicular fracture. COMPARISON: Prior examinations, most recently 12/11/2022. TECHNIQUE: Straight AP and cephalad angulated AP views of the right clavicle. FINDINGS: There is well-maintained alignment status-post ORIF of a mid right clavicular fracture. No hardware loosening is seen. The acromioclavicular and coracoclavicular intervals are normal. The glenohumeral joint is intact. No focal soft tissue swelling, gas or foreign body is seen. XR/XR clavicle RT IMPRESSION: There is well-maintained alignment status-post ORIF of a mid right clavicular fracture. No hardware failure or loosening is noted.
== END 2023-01-22 11:43 | disposition home or self-care (01) ==
LOC: HO.HOSX 11:42
PROVIDERS: Visit Provider Physician Assistant
DX: S42.001D Fracture of unspecified part of right clavicle, subsequent encounter for fracture with routine healing (principal); X58.XXXD Exposure to other specified factors, subsequent encounter; Z98.890 Other specified postprocedural states
CPT/HCPCS: 73000; 99212

== ENCOUNTER 2023-01-22 14:23 | Outpatient (AMB) | payer OTHER, MEDICAID, SELFPAY ==
--- NOTE | 2023-01-22 14:32 | A.OFFVIS_ITS ---
Intake Intake Visit Reasons: PO- Right Clavicle ORIF 10/14/22 Intake Note: Mauricio a 42 year old male who presents today for a post operative visit of right clavicle ORIF, DOS 10/14/22. Patient reports hearing a crack with arm ROM. States he is doing well over all. Allergies morphine [MORPHINE] Allergy (Severe, Verified 01/22/23 14:33) HIVES HPI PO- Right Clavicle ORIF 10/14/22 HPI Details 42-year-old male who returns to the [facility] today for post-op right clavicle ORIF, 10/14/22. He continues to have pain and he does c/o hearing a ?crack? in his clavicle with ROM of arm. He is doing well overall and has no concerns today. 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 There is no redness or drainage. NVI. Results Reviewed Results Reviewed: X-rays of the right clavicle obtained in the office today show intact orthopedic hardware. On the proximal end of the clavicle the hardware does appear to be lifted off. The bone fracture is in good alignment. Assessment & Plan Assessment & Plan (1) Right clavicle fracture: Code(s): S42.001A - Fracture of unspecified part of right clavicle, initial encounter for closed fracture Qualifiers: Clavicle location: shaft Encounter type: subsequent encounter Fracture alignment: nondisplaced Fracture healing: with routine healing Fracture type: closed Qualified Code(s): S42.024D - Nondisplaced fracture of shaft of right clavicle, subsequent encounter for fracture with routine healing (2) S/P ORIF (open reduction internal fixation) fracture: Code(s): Z98.890 - Other specified postprocedural states; Z87.81 - Personal history of (healed) traumatic fracture Plan Images were reviewed with Dr. Howard in the office today. I discussed with patient the findings on x-rays which show evidence of healing in the distal aspect of the clavicle however the proximal end of clavicle does show some redemonstration of the fracture and loosening of the hardware. He is not severely limited with activities and does not have severe pain with motion therefore, we will see how he does over the next 8 weeks. I strongly encouraged him to refrain from overhead lifting, pushing, pulling or carrying greater than 5-10 pounds due to his risk of further displacement. He does seem to understand this and he will see me back in 8 weeks with new x-rays, sooner if needed. Orders: Orders XR clavicle RT 01/22/23 S42.009A - Fracture of unspecified part of unspecified clavicle, initial encounter for closed fracture Patient Instructions: Scribed for Robin Bundy PA-C, by [employer] medical receptionist biller, on 01/22/2023 at 2:30 PM EST. I, Robin Bundy PA-C, have personally reviewed and agree with the information entered by the scribe. Coding Level of Care Code Global (80050) Diagnoses Closed nondisplaced fracture of shaft of right clavicle with routine healing, subsequent encounter S42.024D Clavicle location: shaft Encounter type: subsequent encounter Fracture alignment: nondisplaced Fracture healing: with routine healing Fracture type: closed S/P ORIF (open reduction internal fixation) fracture Z98.890; Z87.81
== END 2023-01-22 14:50 | disposition home or self-care (01) ==
PROVIDERS: Visit Provider Physician Assistant
DX: S42.024D Nondisplaced fracture of shaft of right clavicle, subsequent encounter for fracture with routine healing (principal)
CPT/HCPCS: 99213

== ENCOUNTER 2023-03-26 12:38 | Outpatient (REF) | payer MEDICAID, SELFPAY ==
--- NOTE | ~2023-03-26 | XR_ITS ---
EXAMINATION: XR CLAVICLE, RIGHT CLINICAL INFORMATION: Fracture right clavicle. COMPARISON: 01/22/2023 TECHNIQUE: Two views of the right clavicle. FINDINGS: Again seen is a clavicular fracture treated with plate and screw device along with 2 additional screws not through the plate. There is some evidence of interval healing but bony fusion has not yet occurred. No new fractures. XR/XR clavicle RT IMPRESSION: Healing right clavicular fracture status post ORIF.
== END 2023-03-26 12:39 | disposition home or self-care (01) ==
LOC: HO.HOSX 12:38
PROVIDERS: Visit Provider Physician Assistant
DX: S42.024D Nondisplaced fracture of shaft of right clavicle, subsequent encounter for fracture with routine healing (principal); X58.XXXD Exposure to other specified factors, subsequent encounter; Z96.698 Presence of other orthopedic joint implants; Z87.81 Personal history of (healed) traumatic fracture; Z47.1 Aftercare following joint replacement surgery
CPT/HCPCS: 73000; 99212

== ENCOUNTER 2023-03-26 13:36 | Outpatient (AMB) | payer MEDICAID, SELFPAY ==
--- NOTE | 2023-03-26 14:07 | A.OFFVIS_ITS ---
Intake Intake Visit Reasons: ov- Right Clavicle ORIF 10/14/22 Intake Note: Mauricio a 42 year old male who presents today for a post operative visit of right clavicle ORIF, DOS 10/14/22. Xrays updated while in office. Patient reports he is doing well, states mild discomfort in his clavicle. Allergies morphine [MORPHINE] Allergy (Severe, Verified 03/26/23 14:10) HIVES HPI ov- Right Clavicle ORIF 10/14/22 HPI Details 42-year-old male who returns to the [facility] today for a follow-up of right clavicle ORIF, 10/14/22. He continues to have mild discomfort in his clavicle but is doing well otherwise. He has no other concerns today. 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 There is no redness or drainage. Discomfort along the hardware site with overhead reaching NVI. Results Reviewed Results Reviewed: X-rays of the right clavicle obtained in the office today show intact orthopedic hardware. On the proximal end of the clavicle the hardware does appear to be lifted off. The bone fracture is in good alignment. Assessment & Plan Assessment & Plan (1) Right clavicle fracture: Code(s): S42.001A - Fracture of unspecified part of right clavicle, initial encounter for closed fracture Qualifiers: Clavicle location: shaft Encounter type: subsequent encounter Fracture alignment: nondisplaced Fracture healing: with routine healing Fracture type: closed Qualified Code(s): S42.024D - Nondisplaced fracture of shaft of right clavicle, subsequent encounter for fracture with routine healing (2) S/P ORIF (open reduction internal fixation) fracture: Code(s): Z98.890 - Other specified postprocedural states; Z87.81 - Personal history of (healed) traumatic fracture Plan Case was discussed with Dr. Howard today. The decision was made to move with removal of hardware of right clavicle. We did discuss risk, benefits and alternatives, risks including but not limited to infection, ongoing pain and discomfort, refracture, and nerve and tissue damage. He does understand all this and would like to move accordingly. Orders: Orders XR clavicle RT Today S42.009A - Fracture of unspecified part of unspecified clavicle, initial encounter for closed fracture Patient Instructions: Scribed for Robin Bundy PA-C, by [employer] [employer] medical review coordinator, on 03/26/2023 at 1:45 PM EST. Robin Higginbotham PA-C, have personally reviewed and agree with the information entered by the scribe. Coding Level of Care Code Est Pt Level 3 (38376) Diagnoses Closed nondisplaced fracture of shaft of right clavicle with routine healing, subsequent encounter S42.024D Clavicle location: shaft Encounter type: subsequent encounter Fracture alignment: nondisplaced Fracture healing: with routine healing Fracture type: closed S/P ORIF (open reduction internal fixation) fracture Z98.890; Z87.81
== END 2023-03-26 14:39 | disposition home or self-care (01) ==
PROVIDERS: Visit Provider Physician Assistant
DX: S42.024D Nondisplaced fracture of shaft of right clavicle, subsequent encounter for fracture with routine healing (principal); Z87.81 Personal history of (healed) traumatic fracture
CPT/HCPCS: 99213

== ENCOUNTER 2023-05-14 10:42 | Outpatient (AMB) | payer MEDICAID, SELFPAY ==
--- NOTE | 2023-05-14 10:51 | MHC.OFFVIS ---
Intake Intake Visit Reasons: Pre-Rt Clavicle ALBERTO 05/20/23 [place] Intake Note: Mauricio a 42 year old male presents today for a preoperative right clavicle ALBERTO on 05/20/23 NE. Pain management agreement reviewed and signed. Allergies morphine [MORPHINE] Allergy (Severe, Verified 05/14/23 10:51) HIVES HPI Pre-Rt Clavicle ALBERTO 05/20/23 NE HPI Details Mauricio a 42 year old male presents today for a preoperative right clavicle ALBERTO on 05/20/23 NE. He continues to have pain over the incision area with raising the arm and repetitive motion due to prominent hardware. 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 Review of Systems Const All systems reviewed & are unremarkable except as noted in HPI and below Physical Exam Const General: cooperative and no acute distress Orientation/consciousness: patient oriented x3 HEENT Head: Yes normal to inspection, Yes normocephalic and Yes atraumatic Eyes General: appearance normal, both eyes and all related structures Neck Neck: Yes normal visual inspection and Yes no lymphadenopathy Resp Effort & Inspection: normal respiratory effort and able to speak in complete sentences Cardio Rate: regular rate Peripheral pulses: Peripheral pulses 2+ throughout GI Inspection: Yes normal to inspection Palpation (GI): Soft to palpation Skin General skin exam: no rashes or lesions noted Neuro General: patient oriented x3 Extrem Other: Right clavicle: Incision well healed . There is no redness or drainage. Discomfort along the hardware site with overhead reaching NVI. Psych Appearance: grossly normal Mental Status: mental status grossly normal Assessment & Plan Assessment & Plan (1) Right clavicle fracture: Code(s): S42.001A - Fracture of unspecified part of right clavicle, initial encounter for closed fracture Qualifiers: Clavicle location: shaft Encounter type: subsequent encounter Fracture alignment: nondisplaced Fracture healing: with routine healing Fracture type: closed Qualified Code(s): S42.024D - Nondisplaced fracture of shaft of right clavicle, subsequent encounter for fracture with routine healing (2) S/P ORIF (open reduction internal fixation) fracture: Code(s): Z98.890 - Other specified postprocedural states; Z87.81 - Personal history of (healed) traumatic fracture Plan Given the extent of discomfort from retained orthopedic hardware, the recommendation is to remove the hardware in an attempt to improve his daily function and activities without pain. I explained to the patient the procedure in detail along with the risks, benefits and alternatives. Risks including but not limited to infection, wound breakdown, ongoing pain, re-fracture, or inability to remove the hardware. He does understand all this and would like to proceed with Removal of hardware right clavicle with Dr. Howard. He will be booked accordingly. Patient Instructions: Scribed for Robin Bundy PA-C, by [facility] medical care manager, on 05/14/2023 at 10:45 AM EST. I, Robin Bundy PA-C, have personally reviewed and agree with the information entered by the scribe. Coding Level of Care Code Est Pt Level 3 (52742) Diagnoses Closed nondisplaced fracture of shaft of right clavicle with routine healing, subsequent encounter S42.024D Clavicle location: shaft Encounter type: subsequent encounter Fracture alignment: nondisplaced Fracture healing: with routine healing Fracture type: closed S/P ORIF (open reduction internal fixation) fracture Z98.890; Z87.81
== END 2023-05-14 11:31 | disposition home or self-care (01) ==
PROVIDERS: Visit Provider Physician Assistant
DX: S42.024D Nondisplaced fracture of shaft of right clavicle, subsequent encounter for fracture with routine healing (principal); Z98.890 Other specified postprocedural states; Z87.81 Personal history of (healed) traumatic fracture
CPT/HCPCS: 99213

== ENCOUNTER → 2023-05-14 10:42 | Outpatient (BNVA) | payer MEDICAID, SELFPAY | PROVIDERS: Visit Provider Physician Assistant | DX: S42.024D Nondisplaced fracture of shaft of right clavicle, subsequent encounter for fracture with routine healing (principal); Z98.890 Other specified postprocedural states; Z87.81 Personal history of (healed) traumatic fracture; Z96.9 Presence of functional implant, unspecified; Z96.89 Presence of other specified functional implants | CPT/HCPCS: 99212 ==

== ENCOUNTER 2023-05-20 12:24 | Day surgery (SDC) | payer MEDICAID, SELFPAY ==
[2023-05-15 16:20] VITALS: BMI 25.8
[2023-05-20] VITALS (7 sets, daily range): BP systolic 106–122; BP diastolic 59–76; PULSE 43–61; RESP 16–18; TEMP 36.2; O2SAT 100; BMI 25.0
--- NOTE | ~2023-05-20 | XR_ITS ---
EXAMINATION: XR CLAVICLE, RIGHT CLINICAL INFORMATION: Preop imaging COMPARISON: 03/26/2023 TECHNIQUE: Single view of the right clavicle. FINDINGS: Unchanged appearance of comminuted, sclerotic fractured right clavicle with side plate and screws. Visualized lung is clear. XR/XR clavicle RT IMPRESSION: Stable right clavicular fracture status post ORIF.
--- NOTE | 2023-05-20 15:03 | HO.ANESPROP2 ---
HPI - Anesthesia Eval Consult details Narrative: for hardware removal clavicle PMFSH Active Problems Active Problems: All Active Problems (Updated 12/11/22 @ 15:41 by Robin Bundy PA-C) S/P ORIF (open reduction internal fixation) fracture (Acute) Right clavicle fracture (Acute) Open fracture of proximal phalanx of left index finger (Acute) Past Medical History Medical History Right clavicle fracture No pertinent past medical history Family History Family history of problems with anesthesia: No Surgical History Surgical History Hx of tonsillectomy History of Problems with Anesthesia: No Social History Social History Alcohol intake: current Alcohol intake frequency: holidays/special occasions only Patient Tobacco Use Status: Current everyday Tobacco user Tobacco use type: Cigarette Cigarettes Per Day: 4 Use of substances other than those prescribed or required for medical reasons: Yes Substance Use Type: Marijuana Substance Use Type Other:: last used 1 cigarette joint 05/20/23 @ 10am Are you DNR?: No Advance Directives: No Advance Directives Information Provided: No 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 Meds Allergies Allergy/AdvReac Type Severity Reaction Status Date / Time morphine [MORPHINE] Allergy Severe HIVES Verified 05/14/23 10:51 Active Medications: Current Medications Lactated Ringer's (Lr) 1,000 mls @ 50 mls/hr IVCONT .Q20H [facility] Home Medications Medication Instructions Recorded Confirmed Last Taken Type No Known Home Meds 05/14/23 05/20/23 Unknown History Exam Height,Weight and Vital Signs: Height 5 ft 6 in Weight 70.307 kg Airway Mallampati Class: II TM Dist: >3cm Neck ROM: Full Heart: rrr Lungs: cta Assessment and Plan Assessment Anesthesia Assessment: Anesthesia Plan Discussed and Chart Reviewed Final Anesthetic Review Family History of Problems with Anesthesia: No History of Problems with Anesthesia: No NPO: Yes ASA Class: II Final Preanesthetic Review: No Changes in Pt Med Stat, Meds/Allgs Chart Reviewed, Consent Obtained/Reviewed and Anes Risks/Benef Reviewed Patient Risk: Intermediate Procedure Risk: Intermediate Anesthetic Plan Anesthetic Plan: GA Disposition: Standard PACU
--- NOTE | 2023-05-20 15:06 | PC.NURSE ---
report given to Dez Houston RN for continuation of care.
--- NOTE | 2023-05-20 16:05 | MHC.SHP ---
Pre-Procedural Eval Section A - 24 Hr Update-Section A only Date of Service: 05/20/23 The patient is an INPATIENT: No Changes since office visit: No Cold of Flu in the past 2 weeks, No New Medical Problems, No Changes in Medication and No Patient answered all questions The patient has been examined within 24 hours of the surgical procedure. The History & Physical has been completed within 30 days and I have reviewed it.: Yes Section B - Complete if H&P > 30 days Chief Complaint: Nondisplaced fracture of shaft of right clavicle, Allergies: Allergies Allergy/AdvReac Type Severity Reaction Status Date / Time morphine [MORPHINE] Allergy Severe HIVES Verified 05/14/23 10:51 Plan I have reviewed the history and physical and performed a pertinent physical examination on my patient. No changes have occurred unless specified. Time Spent With Patient Time: Total time managing care of this patient today ____ minutes.
--- NOTE | 2023-05-20 16:12 | PM.OP ---
Brief Operative Note Date of Service: 05/20/23 Pre-op diagnosis: retained ortho hardware right clavicle Post-op diagnosis: same Procedure: Removal of hardware right clavicle Surgeon: Faraz Howard MD Anesthesia: GLMA Was an Ambulance Dispatcher used for this Procedure?: Yes Ambulance Dispatcher: Vianney Tena Estimated blood loss (mL): 25 IV fluids (mL): 500 Pathology: none sent Condition: stable Disposition: PACU
[2023-05-20] MEDS: oxyCODONE HCl Immed Release 5 MG TABLET PO (17:30)
[2023-05-20] MEDS: HYDROmorphone HCl 0.5 MG/0.5 ML SYRINGE 0.25 MG IVPUSH (17:38)
--- NOTE | 2023-05-22 17:47 | W.PM.OPN ---
Operative Note Operative Note Date of Service: 05/20/23 Narrative: Date of Service: 05/20/23 Pre-op diagnosis: retained ortho hardware right clavicle Post-op diagnosis: same Procedure: Removal of hardware right clavicle Surgeon: Faraz Howard MD Anesthesia: GLMA Was an Herbarium Worker used for this Procedure?: Yes Herbarium Worker: Vianney Tena Estimated blood loss (mL): 25 IV fluids (mL): 500 Pathology: none sent Condition: stable Disposition: PACU Procedure in detail: Patient was brought to the operating room and placed in the beach chair position on the surgical table. He was prepped and draped in standard sterile fashion and a time out was called to identify proper site, proper procedure and IV antibiotics per weight were administered. I began by making an incision over the previous surgical incision. Full thickness flaps were taken down to the plate and a periosteal elevator was used to remove soft tissue from the plate. 9 screws and the plate were then removed without difficulty. The screw holes and extraneous bone were debrided with a currette and rongeur. The interfragmentary screws were not removed. There was no evidence of infection. I then irrigated and performed a layered closure with absorbable suture and skin glue. Local anesthetic was administered before and after incision. The patient was placed in sterile dressings, extubated and brought to the recovery room in stable condition.
== END 2023-05-20 18:12 | disposition home or self-care (01) ==
PROVIDERS: Visit Provider Orthopaedic Surgery
PROC: (CPT 20680; principal; 2023-05-20 15:00)
DX: T84.84XA Pain due to internal orthopedic prosthetic devices, implants and grafts, initial encounter (principal); G89.28 Other chronic postprocedural pain; M79.621 Pain in right upper arm; Y79.2 Prosthetic and other implants, materials and accessory orthopedic devices associated with adverse incidents; Z87.81 Personal history of (healed) traumatic fracture; Z98.890 Other specified postprocedural states; Z88.5 Allergy status to narcotic agent; F17.210 Nicotine dependence, cigarettes, uncomplicated
CPT/HCPCS: 20680; 73000; J0131; J0690; J1100; J1170; J2405; J2704; J2795; J3010

== ENCOUNTER → 2023-05-20 12:24 | Outpatient (BNV) | payer MEDICAID, SELFPAY | PROVIDERS: Visit Provider Orthopaedic Surgery | DX: T84.84XA Pain due to internal orthopedic prosthetic devices, implants and grafts, initial encounter (principal) | CPT/HCPCS: 20680 ==

== ENCOUNTER 2023-05-28 13:46 | Outpatient (AMB) | payer MEDICAID, SELFPAY ==
--- NOTE | 2023-05-28 13:51 | MHC.OFFVIS ---
Intake Intake Visit Reasons: PO-Rt Clavicle ALBERTO 05/20/23 NE Intake Note: Mauricio is a 42 year old male who presents today for his first post operative appointment s/p Right Clavicle ALBERTO 05/22/23. Hx of Right Clavicle ORIF 10/14/22. Allergies morphine [MORPHINE] Allergy (Severe, Verified 05/14/23 10:51) HIVES HPI PO-Rt Clavicle ALBERTO 05/20/23 NE HPI Details Mauricio is a 42 year old male who presents today for his first post operative appointment s/p Right Clavicle ALBERTO 05/22/23. Hx of Right Clavicle ORIF 10/14/22. 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 1 tab PO Q6H 7 days PRN 28 tabs 0RF pain (scale score 4-6) To oxycodone-acetaminophen 5-325 mg (Percocet) Partial Fill upon patient request. 1 tab PO DAILY 10 days PRN 10 tabs 0RF pain (scale score 4-6) Coding Level of Care Code Global (21922) Diagnoses S/P ORIF (open reduction internal fixation) fracture Z98.890; Z87.81
== END 2023-05-28 14:27 | disposition home or self-care (01) ==
PROVIDERS: PCP Family Medicine; Visit Provider Orthopaedic Surgery
DX: Z98.890 Other specified postprocedural states (principal); Z87.81 Personal history of (healed) traumatic fracture
CPT/HCPCS: 99024

== ENCOUNTER → 2023-05-28 13:46 | Outpatient (BNVA) | payer MEDICAID, SELFPAY | PROVIDERS: PCP Family Medicine; Visit Provider Orthopaedic Surgery | DX: Z47.89 Encounter for other orthopedic aftercare (principal); Z87.81 Personal history of (healed) traumatic fracture; Z98.890 Other specified postprocedural states | CPT/HCPCS: 99212 ==